=== PATIENT | male | born 1980 | race Caucasian/White ===

== ENCOUNTER 2019-03-11 12:48 | Emergency (ER) | payer OTHER ==
[~2019-03-11] VITALS: Ht 170.2 cm; Wt 68.0 kg
[2019-03-11] MEDS ORDERED: BACITRACIN ZINC OINT UDPKT TOP ONE ×2 (13:15)
[2019-03-11] MEDS ORDERED: IBUPROFEN 600MG TABLET PO ONE (13:15)
[2019-03-11] MEDS ORDERED: TETANUS, DIPHTHERIA, PERTUSSIS VAC/PF 0.5ML (>7YR OLD) IM ONE (13:15)
[2019-03-11] MEDS ORDERED: LIDOCAINE HCL/PF 1% 10 MG/ML 5ML VIAL IJ ONE (13:15)
[2019-03-11 13:23] VITALS: BP 107/74
[2019-03-11] MEDS ORDERED: BACITRACIN 15GM TUBE TOP ONE (13:45)
== END 2019-03-11 14:00 | disposition home or self-care (01) ==
LOC: ER 13:06
DX: S01.81XA Laceration without foreign body of other part of head, initial encounter (principal); W07.XXXA Fall from chair, initial encounter; Y93.89 Activity, other specified; Y92.89 Other specified places as the place of occurrence of the external cause; Y99.8 Other external cause status
CPT/HCPCS: 99283; J3490